=== PATIENT | male | born 1995 | race African-American/Black ===

== ENCOUNTER 2016-10-01 18:07 | Emergency (ER) | payer SELFPAY ==
[2016-10-01 19:02] VITALS: BP 133/60; PULSE 106; TEMP 98.2; BMI 22.6
[2016-10-01] MEDS ORDERED: Lidocaine 2%-Epinephrine 1:100,000 20ml vial INF ONE (19:03)
--- NOTE | 2016-10-01 19:03 | EDPRACDOC ---
- General Information Home Medications: Home Medications No Home Medications 10/01/16 Allergies/Adverse Reactions: Allergies Allergy/AdvReac Type Severity Reaction Status Date / Time No Known Allergies Allergy Verified 10/01/16 19:02 - History of Present Illness Onset: [employer] HPI: PT STATES HE CUT HIS LEFT FOREARM ON A "PIECE OF METAL", STATES LEFT ARM IS SWOLLEN AND PAINFUL. PT DENIES OTHER INJURY. - Location LEFT UPPER FOREARM Mechanism: Reports: Cut, Metal - Tetanus Status Last Tetanus: Yes - Pain Pain Severity: Moderate Bleeding: Reports: Controlled Associated Signs & Symptoms: Denies: Loss of Function, Numbness, Weakness ED Past Medical History - History Reviewed Yes Nurses notes reviewed and agree except as marked No Past Medical History: Yes Patient has no past medical history - Social Medical History Smoking Status: Heavy tobacco smoker (5 or more cigarettes/day or daily pipe/ cigar) Substance Abuse: Illicit Drugs (THC) EDM Review of Systems - Review of Systems Neurological: negative: Numbness, Weakness Musculoskeletal: No Symptoms Reported Integumentary: Wound - Physical Exam Constitutional: Alert (Awake), No apparent distress Oriented to: Time, Person, Place Last recorded Vital Signs: Oxygen Pulse Oxygen Saturation O2 Device Oxygen Flow Rate Fraction of Inspired Oxygen ( FIO2) - HEENT Head: Normal ( normocephalic) - Integumentary Skin: Warm, Dry, Other (LEFT FOREARM: 3 CM LINEAR LAC, NO ACTIVE BLEEDING) - Neurologic Memory Impaired: Normal Motor Function: Normal (Normal tone, Pulses 2+ No cyanosis or edema, FROM) Cranial Nerve: Normal (CN II-X11 intact sensation, strength 5/5) Cerebellar: Normal Mood Description: Normal Perception: Normal ED Procedures - Suture/Laceration LEFT FOREARM Wound Length (cm): 3 Wound's Depth, Shape: linear Wound Explored: clean Betadine Prep?: Yes Anesthesia: Lidocaine w/ Epi Volume Anesthetic (ccs): 6 Wound Repaired With: Sutures Suture Size/Type: 5:0, 4:0, nylon Number of Sutures: 7 (RUNNING) Layer Closure?: No Sterile Dressing Applied?: Yes - Differential Diagnosis Contusion, Fracture, Laceration - Re-evaluation Re-evaluation 1 Re-evaluation Time: 19:28 (PT NOW STATES THAT "BASE BOARD HEATER" FELL ON ARM, HAS PAIN TO DISTAL LEFT FOREARM) - Diagnostic Imaging LEFT FOREARM Image interpreted by: Radiologist LEFT FOREARM - 2 VIEW COMPARISON: None. FINDINGS: Frontal and lateral views were obtained. There is no demonstrable fracture or dislocation. Joint spaces appear intact. 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 IMPRESSION: No fracture or dislocation. No apparent arthropathy. 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 Decision Time to Discharge: 20:30 - Departure Disposition: Home Condition: Stable Final Diagnosis: LAC LEFT FOREARM 3 CM, SIMPLE, CONTUSION LEFT FOREARM Instructions: Laceration (ED) Education/Counseling Given To: Patient Education/Counseling Given Regarding: Diagnosis, Treatment, Prognosis, Follow Up Referrals: Charlotte Lechuga MD [Staff Physician] - One Week Additional Instructions: Keep wound clean and dry, wash daily with soap and water, cover with antibiotic ointment and clean bandage. Have sutures removed in 10-14 days, use Tylenol or Motrin as needed for pain. Return to the ED for any worsening symptoms or concerns.
--- NOTE | 2016-10-01 20:03 | DIRPT ---
CLINICAL DATA: Heater fell on forearm EXAM: LEFT FOREARM - 2 VIEW COMPARISON: None. FINDINGS: Frontal and lateral views were obtained. There is no demonstrable fracture or dislocation. Joint spaces appear intact. 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 IMPRESSION: No fracture or dislocation. No apparent arthropathy. 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 Electronically Signed By: Jason Isaacs III, M.D. On: 10/01/2016 20:00
== END 2016-10-01 20:41 | disposition home or self-care (01) ==
LOC: EDMC 18:07
DX: S51.812A Laceration without foreign body of left forearm, initial encounter (principal); W45.8XXA Other foreign body or object entering through skin, initial encounter
CPT/HCPCS: 12002; 73090; 99282; J3490